=== PATIENT | male | born 1950 | race Caucasian/White ===

== ENCOUNTER 2024-02-24 20:30 | Emergency (ER) | payer OTHER ==
[2024-02-25] MEDS ORDERED: Lidocaine 1% MPF 2 ML VIAL ONE (01:06)
[2024-02-25] MEDS ORDERED: cefTRIAXone (ROCEPHIN) 1 GM VIAL ONE (01:06)
[2024-02-25 01:14] LABS: Bacteria/HPF None Seen HPF (None Seen); Bilirubin Negative (Negative); Blood, Urine 3+ (Negative); CAUTI Indications for Culture Acute Hematuria; Clarity Extra Turbid (Clear); Glucose, Urine (Dipstick) Normal (Negative); Ketone, Urine Negative (Negative); Leukocyte 500 Leu/uL (Negative); Nitrite Negative (Negative); Protein, Urine (Dipstick) 50 mg/dL (Neg-Trace); RBC/HPF Greater than 50 HPF (0-3); Specific Gravity, Urine 1.013 (1.002-1.036); Squamous Epithelial None Seen HPF (0-3); Urobilinogen Normal mg/dL (Less than 2); WBC/HPF Greater than 50 HPF (0-3); pH, Urine 7.5 (5.0-9.0)
[2024-02-25 01:17] LABS: Urine Culture Reflex Yes Yes
== END 2024-02-25 01:26 ==
LOC: ERS 20:30
DX: T83.018A Breakdown (mechanical) of other urinary catheter, initial encounter (principal); N39.0 Urinary tract infection, site not specified; I10 Essential (primary) hypertension
CPT/HCPCS: 51702; 81001; 87086; 96372; 99283; J0696

== ENCOUNTER 2024-07-10 14:39 | Observation (INO) | payer OTHER ==
[~2024-07-10 14:39] MED LIST: Iopamidol-370 76% 500 ML MDV (1 ML CHARGE) ONE
[2024-07-10] MEDS ORDERED: Senokot S 8.6-50 MG TAB PO PRN (15:41)
[2024-07-10] MEDS ORDERED: Nitroglycerin 0.4 MG TAB (25 Tab Bottle) SL PRN (15:44)
[2024-07-10 16:16] VITALS: BMI 30.4
[2024-07-10] MEDS ORDERED: Acetaminophen 325 MG TAB PO PRN (16:36)
[2024-07-10] MEDS: Rivaroxaban 10 MG TAB PO SCH (17:42)
[2024-07-10] MEDS ORDERED: Terazosin HCl 5 MG CAP PO SCH ×3 (21:00)
[2024-07-10] MEDS: Atorvastatin Calcium 40 MG TAB PO SCH (21:33)
[2024-07-11 04:52] LABS: #Basophils Less than 0.03 10x3/uL (0.0-0.2); %Basophils 0.3 % (0.0-1.0); %Lymphocytes 23.9 % (21.0-51.0); %Monocytes 7.8 % (0.0-10.0); %Neutrophils 64.7 % (42.0-75.0); Hematocrit 40.8 % (42.0-52.0); Hemoglobin 12.7 g/dL (14.0-18.0); Mean Corpuscular HGB CONC 31.1 g/dL (32.0-36.0); Mean Corpuscular Hemoglobin 27.1 pg (27.0-31.0); Mean Corpuscular Volume 87.2 fL (78.0-98.0); Mean Platelet Volume 10.7 fL (7.4-10.4); Platelet Count 217 10x3/uL (130-400); RBC Distribution Width 15.8 % (11.5-14.5); Red Blood Cell (RBC) Count 4.68 mill/uL (4.70-6.10)
[2024-07-11 05:06] LABS: Anion Gap 9 mmol/L (10-20); BUN (Urea Nitrogen) 17 mg/dL (8.4-25.7); Calc. Creatinine Clearance 99 mL/min (70-130); Calcium 8.5 mg/dL (7.8-10.44); Carbon Dioxide 25 mmol/L (23-31); Chloride 108 mmol/L (98-107); Estimated GFR 94; Glucose 84 mg/dL (83-110); Sodium 138 mmol/L (136-145)
[2024-07-11] MEDS: Lisinopril 2.5 MG TAB PO SCH (09:31)
[2024-07-11] MEDS: Tamsulosin HCl 0.4 MG CAP PO SCH (09:31)
[2024-07-11] MEDS: Pantoprazole DR 40 MG TAB PO SCH (09:31)
[2024-07-11] MEDS: Aspirin 81 mg Enteric Coated Tablet PO SCH (09:32)
[2024-07-11] MEDS: Spironolactone 25 MG TAB PO SCH (09:32)
[2024-07-11] MEDS: Finasteride 5 MG TAB PO SCH (09:32)
[2024-07-11 16:01] VITALS: BP 149/75; TEMP 98.1
== END 2024-07-11 16:35 ==
LOC: 2NO 14:39
PROVIDERS: ADMIT Family Medicine; ATTEND Family Medicine
DX: I20.0 Unstable angina (principal); R91.1 Solitary pulmonary nodule; I10 Essential (primary) hypertension; I48.91 Unspecified atrial fibrillation; Z79.899 Other long term (current) drug therapy; D64.9 Anemia, unspecified; N40.0 Benign prostatic hyperplasia without lower urinary tract symptoms; Z95.0 Presence of cardiac pacemaker; Z95.1 Presence of aortocoronary bypass graft; Z98.49 Cataract extraction status, unspecified eye; Z90.49 Acquired absence of other specified parts of digestive tract; Z90.89 Acquired absence of other organs; Z79.01 Long term (current) use of anticoagulants; Z79.82 Long term (current) use of aspirin
CPT/HCPCS: 36415; 71275; 80048; 85025; G0378; Q9967